=== PATIENT | male | born 1995 | race Caucasian/White ===

== ENCOUNTER → 2021-07-18 15:15 | Outpatient (CLI) | payer OTHER, SELFPAY ==
--- NOTE | 2021-07-18 15:18 | DI.RAD.S_ITS ---
PROCEDURE: XR CHEST 2V INDICATIONS: Fever TECHNIQUE: 2 views of the chest were acquired. COMPARISON: None. FINDINGS: Surgical changes and devices: None. Lungs and pleura: Lungs are clear. No pleural effusions or pneumothorax. Mediastinum: Mediastinal contours are normal. Heart size is normal. Bones and chest wall: No suspicious bony abnormalities. Soft tissues appear unremarkable. IMPRESSION: No acute cardiopulmonary pathology. Dictated by: Reji Leavitt M.D. on 07/18/2021 at 15:25 Approved by: Reji Leavitt M.D. on 07/18/2021 at 15:26
== END ==
PROVIDERS: Referring Provider Nurse Practitioner Critical Care Medicine; Visit Provider Nurse Practitioner Critical Care Medicine
DX: R50.9 Fever, unspecified (principal)
CPT/HCPCS: 71046

== ENCOUNTER 2021-10-23 17:00 | Emergency (ER) | payer OTHER, SELFPAY ==
[2021-10-23] VITALS (10 sets, daily range): BP systolic 139–175; BP diastolic 83–100; PULSE 72–91; RESP 14–18; TEMP 37; O2SAT 95–99; BMI 35.8
[2021-10-23 18:17] LABS: COVID19 -Nasal RAPID Negative (Negative)
[2021-10-23] MEDS: ALBUTEROL 2.5 MG/3 ML NEB (ADULT) INH (18:42)
--- NOTE | 2021-10-23 18:47 | ED_ITS ---
HPI - SOB/Dyspnea General Chief Complaint: Shortness of Breath/Dyspnea Stated Complaint: SOB, ref. for nebulizer Time Seen by Provider: 10/23/21 17:51 Source: patient Mode of arrival: Ambulatory Limitations: no limitations History of Present Illness HPI Narrative: Patient is a 26-year-old male who has a history of environmental induced asthma. He states that 2 days ago with mowing the lawn a 70 turned off the promotional demonstrator the gas stopped and kind of pushed grass back into his face. Since then he has had some nasal congestion some cough and chest tightness. He used [id number] allergy medications along with his albuterol without any significant change. He denies fever or chills. He did travel recently to [place] last week. He denies any calf pain. This seems similar in his presentation to previous environmental allergies. Related Data Previous Rx's Medication Instructions Recorded albuterol sulfate 90 mcg/actuation 2 puff inhalation Q6H PRN 07/15/21 aerosol inhaler shortness of breath or wheezing #8.5 grams methylprednisolone 4 mg tablets in See Rx Instructions PO PER PKG DIR 07/18/21 a dose pack (Medrol (Sim)) #21 ea prednisone 20 mg tablet 40 mg PO DAILY #10 tabs 10/23/21 Allergies Allergy/AdvReac Type Severity Reaction Status Date / Time sulfamethoxazole AdvReac Verified 10/23/21 16:56 [From Bactrim] trimethoprim [From Bactrim] AdvReac Verified 10/23/21 16:56 Review of Systems Review of Systems Narrative: GENERAL: Denies chills, fatigue, malaise, fever, sweats, travel HEENT: Denies sinus pain, ear pain, sore throat, difficulty swallowing, neck pain RESPIRATORY: See HPI CARDIOVASCULAR: Denies chest pain, palpitations, orthopnea, edema GASTROINTESTINAL: Denies nausea, vomiting, abdominal pain, diarrhea, constipation, melena. : Denies dysuria, frequency, incontinence, hematuria, urinary retention, flank pain. MUSCULOSKELETAL: Denies weakness, joint pain, or bony pain SKIN: No rash, no erythema, no pruritus NEUROLOGIC: Denies weakness, dizziness, headache, numbness, change in speech, confusion PSYCHIATRIC: No concerning psychosocial issues. 12 point review of systems is negative except for those stated above and HPI Patient History Social History Smoking Status: Never smoker Smoking Status: Never smoker Substance Use Type: does not use Exam Initial Vital Signs Initial Vital Signs: Vital Signs Temperature 98.6 F 10/23/21 17:10 Pulse Rate 82 10/23/21 17:10 Respiratory Rate 17 10/23/21 17:10 Blood Pressure 175/100 H 10/23/21 17:10 Pulse Oximetry 96 10/23/21 17:10 Oxygen Delivery Method 10/23/21 17:10 GENERAL: Alert well-appearing 26-year-old and in no acute distress. HEENT: Head atraumatic,EOMI, pupils reactive, face symmetric, moist mucous membranes CARDIOVASCULAR: Regular rate and rhythm without murmurs, rubs or gallops. RESPIRATORY: Clear breath sounds bilaterally no wheezing or rales speaks in full sentences without difficulty ABDOMEN: Soft, nontender. Normoactive bowel sounds all 4 quadrants. No guarding or rebound. EXTREMITIES: Normal range of motion, no clubbing or edema. Neurovascularly intact NEUROLOGICAL: Alert and oriented x4.Normal gait and speech. SKIN: Warm, dry, no laceration, no petechiae, no rashes or lesions. Scores PERC Score Age greater than or equal to 50 years: No Heart rate greater than or equal to 100 bpm: No Room Air O2 Sat less than 95%: No Unilateral leg swelling: No Recent trauma or surgery: No Hemoptysis: No Prior PE or DVT: No Hormone Use: No Total PERC Score: 0 Course Orders Ordered: ED Orders 10/23/21 17:30 COVID19 -Nasal RAPID/Pre-Proc Stat 10/23/21 18:27 RT Consult Eval and Treat NOW 10/23/21 18:53 Chest [XR chest 1V] Stat 10/23/21 19:42 CBC Auto Diff [Complete Blood Count AUTO DIFF] Stat CMP [Comprehensive Metabolic Panel] Stat D Dimer Stat Troponin & CK Cardiac Panel Stat 10/23/21 19:43 EKG-12 Lead Stat Discontinued Medications Albuterol (Albuterol 2.5 Mg/3 Ml Neb (Adult)) 2.5 mg INH NOW ONE Stop: 10/23/21 18:41 Last Admin: 10/23/21 18:42 Dose: 2.5 mg Documented By: ALMA DELIA Prednisone (Prednisone 20 Mg Tablet) 40 mg PO NOW ONE Stop: 10/23/21 20:40 Last Admin: 10/23/21 20:52 Dose: 40 mg Documented By: ROSE Vital Signs Vital signs: Vital Signs - 8 hr 10/23/21 17:10 10/23/21 17:17 10/23/21 17:30 Temperature 98.6 F Pulse Rate 82 81 72 Respiratory Rate 17 Blood Pressure 175/100 H Pulse Oximetry 96 96 95 Oxygen Delivery Method Room Air 10/23/21 18:00 10/23/21 18:43 10/23/21 19:01 Temperature Pulse Rate 73 80 83 Respiratory Rate 14 Blood Pressure Pulse Oximetry 95 99 96 Oxygen Delivery Method Room Air 10/23/21 19:01 10/23/21 19:30 10/23/21 19:33 Temperature Pulse Rate 84 Respiratory Rate 18 Blood Pressure 144/85 H 154/83 H Pulse Oximetry 95 Oxygen Delivery Method 10/23/21 19:33 10/23/21 20:00 10/23/21 20:56 Temperature Pulse Rate 91 H 85 89 Respiratory Rate 16 Blood Pressure 145/89 H 139/91 H Pulse Oximetry 98 95 98 Oxygen Delivery Method Room Air MDM - SOB/Dyspnea Lab Data Result diagrams: 10/23/21 19:42 10/23/21 19:42 Labs: Lab Results 10/23/21 10/23/21 10/23/21 Range/Units 17:30 19:42 19:42 WBC 8.6 (4.5-11.0) X10^3/uL RBC 5.53 (4.5-5.9) X10^6/uL Hgb 14.6 (13.5-17.5) g/dL Hct 43.3 (41-53) % MCV 78.3 L (80-100) fL MCH 26.5 (26-34) PG MCHC 33.8 (30-36) % RDW 14.1 (11.6-14.8) % Plt Count 269 (150-400) X10^3/uL Neut % (Auto) 57.4 (50-75) % Lymph % (Auto) 26.3 (25-40) % [place] % (Auto) 4.4 (3-14) % Eos % (Auto) 10.6 H (2-4) % Baso % (Auto) 1.3 (0-2) % Neut # (Auto) 5000 (8453-2081) /uL Lymph # (Auto) 2300 (3861-4197) /uL [place] # (Auto) 400 (0-900) /uL Eos # (Auto) 900 H (0-450) /uL Baso # (Auto) 100 (0-100) /uL D-Dimer < 200 (<230) ng/mL Sodium (137-145) mmol/L Potassium (3.4-5.1) mmol/L Chloride (98-107) mmol/L Carbon Dioxide (22-32) mmol/L BUN (9-20) mg/dL Creatinine (0.66-1.25) mg/dL Estimated GFR (>60) mL/min BUN/Creatinine Ratio (6-22) Glucose (70-100) mg/dL Calcium (8.4-10.2) mg/dL Total Bilirubin (0.2-1.3) mg/dL AST (17-59) IU/L ALT (<50) IU/L Alkaline Phosphatase (38-126) U/L Total Creatine Kinase (55-170) U/L CK-MB (CK-2) (<2.37) ng/mL CK-MB (CK-2) Rel Index (1.5-5.0) % Troponin I (0.01-0.034) ng/mL Total Protein (6.3-8.2) g/dL Albumin (3.5-5.0) g/dL Globulin (1.7-4.1) g/dL Albumin/Globulin Ratio (1.0-2.8) SARS-CoV-2 (PCR) Negative (Negative) 10/23/21 Range/Units 19:42 WBC (4.5-11.0) X10^3/uL RBC (4.5-5.9) X10^6/uL Hgb (13.5-17.5) g/dL Hct (41-53) % MCV (80-100) fL MCH (26-34) PG MCHC (30-36) % RDW (11.6-14.8) % Plt Count (150-400) X10^3/uL Neut % (Auto) (50-75) % Lymph % (Auto) (25-40) % [place] % (Auto) (3-14) % Eos % (Auto) (2-4) % Baso % (Auto) (0-2) % Neut # (Auto) (2885-3589) /uL Lymph # (Auto) (5311-5689) /uL [place] # (Auto) (0-900) /uL Eos # (Auto) (0-450) /uL Baso # (Auto) (0-100) /uL D-Dimer (<230) ng/mL Sodium 139 (137-145) mmol/L Potassium 3.7 (3.4-5.1) mmol/L Chloride 103 (98-107) mmol/L Carbon Dioxide 25 (22-32) mmol/L BUN 22 H (9-20) mg/dL Creatinine 1.12 (0.66-1.25) mg/dL Estimated GFR > 60 (>60) mL/min BUN/Creatinine Ratio 19.6 (6-22) Glucose 100 (70-100) mg/dL Calcium 9.4 (8.4-10.2) mg/dL Total Bilirubin 0.4 (0.2-1.3) mg/dL AST 23 (17-59) IU/L ALT 20 (<50) IU/L Alkaline Phosphatase 77 (38-126) U/L Total Creatine Kinase 108 (55-170) U/L CK-MB (CK-2) 1.49 (<2.37) ng/mL CK-MB (CK-2) Rel Index 1.4 L (1.5-5.0) % Troponin I < 0.012 (0.01-0.034) ng/mL Total Protein 7.7 (6.3-8.2) g/dL Albumin 4.7 (3.5-5.0) g/dL Globulin 3.0 (1.7-4.1) g/dL Albumin/Globulin Ratio 1.6 (1.0-2.8) SARS-CoV-2 (PCR) (Negative) Imaging Data Chest x-ray: Radiologist's Impression: XRay Report Signed Patient: Jesus Hardwick MR#: [id number] : 1995 Acct:[id number] Age/Sex: 26 / M Date of Service: 10/23/21 Loc: ED Accession Number: [id number] ?? Procedure: XR chest 1V Ordering Provider: Felipa Jules D.O. PROCEDURE:? XR CHEST 1V ? INDICATIONS:? asthma ? TECHNIQUE:? One view of the chest was acquired.? ? COMPARISON:? [facility], CR, XR CHEST 2V, 07/18/2021, 15:07. ? FINDINGS:? ? Surgical changes and devices:? None.? ? Lungs and pleura:? Lungs are clear.? No pleural effusions or pneumothorax.? ? Mediastinum:? Mediastinal contours appear normal.? Heart size is normal.? ? Bones and chest wall:? No suspicious bony lesions.? Overlying soft tissues appear unremarkable.? ? IMPRESSION:? No acute cardiopulmonary disease process. ? ? Dictated by: Dianna Castillo MD, PhD on 10/23/2021 at 19:16 ECG Data Interpretation: Normal sinus rhythm rate 74 IN interval 142 QRS [address] changes no T- wave inversion MDM Narrative Medical decision making narrative: The patient overall does not feel significantly better after breathing treatment. Although he appears in no acute respiratory distress and he is not tachycardic or hypoxic. However he did [place]. Possible PE. Patient says previously when he has had his allergen attacks a breathing treatment and nebulizer an mvhf-hgm-[id number] medications help him instantaneously and they are not helping this time. Blood work is overall reassuring. D-dimer is negative. He has improved somewhat after time with albuterol. He certainly is not in any sort of respiratory distress. He has albuterol inhaler he is sent home with a spacer. Discharge Plan Departure Patient Disposition: Home Clinical Impression: Asthma due to environmental allergies Instructions: DI for Asthma -- Adult Activity Restrictions/Additional Instructions: *You have been diagnosed with environmental asthma induced exacerbation *What to do: This should continue to improve. *Continue to take medications as directed--> [facility] Albuterol inhaler 1-2 puffs every 4 hours while awake for the next 24 hours and then back off Prednisone 40 mg once a day for 5 days *Follow up with your primary care provider in 2-3 days or call [phone] *Return to ER if you should have increasing shortness of breath, chest pain or any new, worsening or concerning symptoms Prescriptions: New prednisone 20 mg tablet 40 mg PO DAILY Qty: 10 0RF No Action albuterol sulfate 90 mcg/actuation HFA aerosol inhaler 2 puff inhalation Q6H PRN (Reason: shortness of breath or wheezing) Qty: 8.5 1RF methylprednisolone [Medrol (Sim)] 4 mg tablets,dose pack See Rx Instructions PO PER PKG DIR Qty: 21 0RF Rx Instructions: PO PER PKG DIR Referrals: Miscellaneous,Doctor, MD [Primary Care Provider] - Visit Report Forms: Patient Portal/API
--- NOTE | 2021-10-23 18:53 | DI.RAD.S_ITS ---
PROCEDURE: XR CHEST 1V INDICATIONS: asthma TECHNIQUE: One view of the chest was acquired. COMPARISON: [facility], CR, XR CHEST 2V, 07/18/2021, 15:07. FINDINGS: Surgical changes and devices: None. Lungs and pleura: Lungs are clear. No pleural effusions or pneumothorax. Mediastinum: Mediastinal contours appear normal. Heart size is normal. Bones and chest wall: No suspicious bony lesions. Overlying soft tissues appear unremarkable. IMPRESSION: No acute cardiopulmonary disease process. Dictated by: Dianna Castillo MD, PhD on 10/23/2021 at 19:16 Approved by: Dianna Castillo MD, PhD on 10/23/2021 at 19:16
[2021-10-23 19:55] LABS: Add Manual Diff / Slide Review NO; Basophils Absolute Auto 100 /uL (0-100); Basophils Percent Auto 1.3 % (0-2); Eosinophils Absolute Auto 900 /uL (0-450); Eosinophils Percent Auto 10.6 % (2-4); Hematocrit 43.3 % (41-53); Hemoglobin 14.6 g/dL (13.5-17.5); Lymphocytes Absolute Auto 2300 /uL (1100-4500); Lymphocytes Percent Auto 26.3 % (25-40); Mean Corpuscular HGB Conc 33.8 % (30-36); Mean Corpuscular Hemoglobin 26.5 PG (26-34); Mean Corpuscular Volume 78.3 fL (80-100); Monocytes Absolute Auto 400 /uL (0-900); Monocytes Percent Auto 4.4 % (3-14); Neutrophils Absolute Auto 5000 /uL (1500-7000); Neutrophils Percent Auto 57.4 % (50-75); Platelet Count 269 X10^3/uL (150-400); Red Blood Cell Count 5.53 X10^6/uL (4.5-5.9); Red Cell Distribution Width 14.1 % (11.6-14.8); White Blood Cell Count 8.6 X10^3/uL (4.5-11.0)
[2021-10-23 20:10] LABS: Alanine Aminotransferase 20 IU/L (<50); Albumin 4.7 g/dL (3.5-5.0); Albumin Globulin Ratio 1.6 (1.0-2.8); Alkaline Phosphatase 77 U/L (38-126); Aspartate Aminotransferase 23 IU/L (17-59); BUN Creatinine Ratio 19.6 (6-22); Bilirubin Total 0.4 mg/dL (0.2-1.3); Blood Urea Nitrogen 22 mg/dL (9-20); Calcium 9.4 mg/dL (8.4-10.2); Carbon Dioxide 25 mmol/L (22-32); Chloride 103 mmol/L (98-107); Creatine Kinase 108 U/L (55-170); Estimated Glomerular Filt Rate > 60 mL/min (>60); Glucose 100 mg/dL (70-100); HEMOLYSIS < 15 (0-50); Potassium 3.7 mmol/L (3.4-5.1); Sodium 139 mmol/L (137-145); Total Protein 7.7 g/dL (6.3-8.2)
[2021-10-23 20:12] LABS: D Dimer < 200 ng/mL (<230)
[2021-10-23 20:21] LABS: Troponin I < 0.012 ng/mL (0.01-0.034)
[2021-10-23 20:29] LABS: CKMB % Relative Index 1.4 % (1.5-5.0); Creatine Kinase MB 1.49 ng/mL (<2.37)
[2021-10-23] MEDS: predniSONE 20 MG TABLET 40 MG PO (20:52)
== END 2021-10-23 20:57 | disposition home or self-care (01) ==
PROVIDERS: Emergency Medicine; Emergency Provider Emergency Medicine
DX: J45.909 Unspecified asthma, uncomplicated (principal); R07.89 Other chest pain; Z20.822 Contact with and (suspected) exposure to COVID-19
CPT/HCPCS: 71045; 80053; 82550; 82553; 84484; 85025; 85379; 87635; 93005; 93010; 94150; 94640; 99283; 99284; C9803; J7613